=== PATIENT | female | born 1995 | race Caucasian/White ===

== ENCOUNTER 2023-05-13 17:10 | Day surgery (SDC) | payer OTHER | END 2023-05-13 18:40 | disposition home or self-care (01) | LOC: CSHLD/OP 17:10 | PROVIDERS: ATTEND Obstetrics & Gynecology | DX: O47.1 False labor at or after 37 completed weeks of gestation (principal); O32.1XX0 Maternal care for breech presentation, not applicable or unspecified; Z3A.39 39 weeks gestation of pregnancy; Z79.899 Other long term (current) drug therapy ==

== ENCOUNTER 2023-05-16 09:51 | Inpatient (IN) | payer OTHER ==
[2023-05-15 11:02] LABS: Hematocrit 34.9 % (34.9-44.5); Hemoglobin 12.3 g/dL (12.0-15.5); Mean Corpuscular HGB CONC 35.2 g/dL (32.0-36.0); Mean Corpuscular Hemoglobin 30.6 pg (27.0-33.0); Mean Corpuscular Volume 86.8 fl (81.6-98.3); Mean Platelet Volume 12.6 fl (7.4-10.4); Platelet Count 228 10x3/uL (150-450); RBC Distribution Width 13.2 % (11.5-14.5); Red Blood Cell (RBC) Count 4.02 10x6/uL (3.90-5.03); White Blood Cell (WBC) Count 10.1 10x3/uL (3.5-10.5)
[2023-05-15 11:33] LABS: Syphilis Antibody Nonreactive (Nonreactive); Syphilis Antibody Index 0.06 S/CO (<1.00 Non-Reactive)
[2023-05-15 11:34] LABS: HBSAg Index 0.26 S/CO (0-0.99); Hep B Surf Ag Non-Reactive S/CO (NonReactive)
[2023-05-16] MEDS ORDERED: Promethazine HCl 25 MG/ML VIAL IM PRN (12:50)
[2023-05-16] MEDS ORDERED: Ondansetron PF 4 MG/2 ML Vial IVP PRN ×2 (12:50)
[2023-05-16] MEDS ORDERED: Naloxone HCl 0.4 mg/ml Vial IVP PRN ×2 (12:50)
[2023-05-16] MEDS ORDERED: fentaNYL 50 mcg/mL 1 mL Vial SLOW IVP PRN (12:50)
[2023-05-16] MEDS ORDERED: diphenhydrAMINE 50 MG/ML VIAL IVP PRN (12:50)
[2023-05-16] MEDS ORDERED: Naloxone HCl 0.4 mg/ml Vial IV PRN (12:50)
[2023-05-16] MEDS ORDERED: HYDROmorphone 0.5 MG/0.5 ML SYRINGE SLOW IVP PRN (12:50)
[2023-05-16] MEDS ORDERED: Meperidine HCl/PF 25 MG (1 mL) VIAL SLOW IVP PRN (12:50)
[2023-05-16] MEDS ORDERED: Promethazine HCl 25 MG SUPP PR PRN (12:50)
[2023-05-16] MEDS ORDERED: Moisturizing Cream (Eucerin) 113 GM JAR TOP PRN (12:50)
[2023-05-16] MEDS ORDERED: Bicitra 30 ML UDCUP PO PRN (12:52)
[2023-05-16] MEDS ORDERED: CEFAZOLIN 2 GM in Sodium Chloride 0.9% 100 ML IVPB SCH (12:52)
[2023-05-16] MEDS ORDERED: Famotidine/PF 20 mg/2ml Vial SLOW IVP PRN (12:52)
[2023-05-16 12:55] VITALS: BMI 39.0
[2023-05-16] MEDS ORDERED: Ketorolac Tromethamine 30 MG (1 mL) VIAL IVP SCH (13:00)
[2023-05-16] MEDS ORDERED: Communication Order-Pharmacy FS SCH (13:00)
[2023-05-16] MEDS ORDERED: diphenhydrAMINE 25 MG CAP PO PRN (14:44)
[2023-05-16] MEDS ORDERED: Misoprostol 200 MCG TAB PR PRN ×2 (14:44)
[2023-05-16] MEDS ORDERED: hydrALAZINE 20 MG/ML VIAL SLOW IVP PRN ×2 (14:44)
[2023-05-16] MEDS ORDERED: Tranexamic Acid 1,000 MG/10 ML VIAL IVP PRN (14:44)
[2023-05-16] MEDS ORDERED: Diphenoxylate HCl/Atropine Tablet PO PRN (14:44)
[2023-05-16] MEDS ORDERED: Methylergonovine 0.2 MG/ML VIAL IM PRN ×2 (14:44)
[2023-05-16] MEDS ORDERED: Carboprost 250 MCG/ML AMP IM PRN (14:44)
[2023-05-16] MEDS: Oxytocin 30 units/NS 500 ML 500 ML IV SCH (15:33)
[2023-05-16] MEDS: fentaNYL 50 mcg/mL 1 mL Vial ONE (17:30)
[2023-05-16] MEDS: PHENYLEPHRINE-NS 100 MCG/ML 10 ML SYRINGE ONE (17:32)
[2023-05-16] MEDS: Oxytocin 10 UNITS/ML VIAL ONE (17:32)
[2023-05-16] MEDS: Dexamethasone 4 mg/ml Vial ONE (17:32)
[2023-05-16] MEDS: Morphine PF 10 MG/10 ML VIAL ONE (17:32)
[2023-05-16] MEDS: Erythromycin Base 0.5% Oint 1 GM TUBE ONE (17:33)
[2023-05-16] MEDS: Phytonadione Neonatal 1 MG/0.5 ML AMP ONE (17:33)
[2023-05-16] MEDS: Acetaminophen 325 MG TAB PO SCH (17:33)
[2023-05-16] MEDS: Boostrix 0.5 ML (Tdap) VIAL (>/=7 yrs of age) IM ONE (17:33)
[2023-05-16] MEDS: Ondansetron PF 4 MG/2 ML Vial ONE (17:33)
[2023-05-16] MEDS: Hepatitis B Vaccine 10 MCG/0.5 ML SYR ONE (17:33)
[2023-05-16] MEDS: Ketorolac Tromethamine 30 MG (1 mL) VIAL IVP PRN (18:02)
[2023-05-17 05:27] LABS: Hematocrit 32.6 % (34.9-44.5); Hemoglobin 10.8 g/dL (12.0-15.5); Mean Corpuscular HGB CONC 33.1 g/dL (32.0-36.0); Mean Corpuscular Hemoglobin 29.5 pg (27.0-33.0); Mean Corpuscular Volume 89.1 fl (81.6-98.3); Mean Platelet Volume 12.7 fl (7.4-10.4); Platelet Count 224 10x3/uL (150-450); RBC Distribution Width 13.2 % (11.5-14.5); Red Blood Cell (RBC) Count 3.66 10x6/uL (3.90-5.03); White Blood Cell (WBC) Count 14.5 10x3/uL (3.5-10.5)
[2023-05-17] MEDS: Ferrous Sulfate 325 MG TAB PO SCH (07:50)
[2023-05-17] MEDS: Prenatal Vitamin 1 TAB PO SCH (07:51)
[2023-05-17] MEDS: Docusate 100 MG CAP PO PRN (07:52)
[2023-05-17] MEDS: HYDROcodone/Acetaminophen 5/325 mg Tablet PO PRN ×2 (07:55→20:21)
[2023-05-17] MEDS: Simethicone Chewable 80 MG TAB PO PRN (07:55)
[2023-05-17] MEDS: Ibuprofen 800 MG TAB PO SCH (12:24)
[2023-05-18 09:29] VITALS: BP 123/76; TEMP 98.2
== END 2023-05-18 13:30 | disposition home or self-care (01) | DRG 788 ==
LOC: CSHLD 09:51 → CSHPP 16:49
PROVIDERS: ADMIT Obstetrics & Gynecology; ATTEND Obstetrics & Gynecology
PROC: 10D00Z1 Extraction of Products of Conception, Low, Open Approach (ICD-10-PCS; principal; 2023-05-16)
DX: O32.1XX0 Maternal care for breech presentation, not applicable or unspecified (principal); Z3A.39 39 weeks gestation of pregnancy; Z37.0 Single live birth
CPT/HCPCS: 36415; 51702; 85027; 86780; 86850; 86900; 86901; 87340; J1100; J1885; J2274; J2405; J2590; J3010